=== PATIENT | female | born 1930 | race Caucasian/White ===

== ENCOUNTER → 2017-04-27 | Outpatient (CLI) | payer MEDICARE, BC ==
[~2017-04-27] MED LIST: ACETAMINOPHEN650 M3 PO; ALPRAZOLAM PO; AMANTADINE100 M1 PO; AMLODIPINE BESYL5 MG PO; CALCIUM 1,0001 EACH PO; CALCIUM 500 + D1 TAB PO; CALCIUM 600 + D1 TA1 PO; CELEBREX PO; CENTRAL VITE PO; CERTAGEN PO; CITRACAL200 MG; CITRACAL200 MG PO; COLESTID PO; DONEPEZIL HCL10 MG PO; FISH OIL 1,0001 CA2 PO; FISH OIL 1,0001 CAP PO; FLAGYL PO; FLEXERIL PO; FLEXERIL10 MG PO; HYDRALAZINE HCL25 MG PO; HYDROCODON-ACE1 EAC1 PO; LEVAQUIN PO; LEVAQUIN750 MG PO; LIPITOR PO; LIPITOR20 MG PO; LISINOPRIL PO; LORTAB 7.5-5001 TAB PO; LORTAB 7.51 TAB PO; LYRICA75 MG PO; MULTIVITAMIN W-1 TAB PO; NAMENDA10 MG PO; OLANZAPINE5 MG PO; PANTOPRAZOLE SO40 M1 PO; PREVACID PO; PREVACID15 MG PO; PRILOSEC PO; PROTONIX PO; TRIMPEX100 MG PO; VIT B-12; VIT B-12 PO; VITAMIN B12-FO1 EACH PO; VITAMIN D 22000 UNIT PO; VITAMIN D-32000 UNIT PO; VITAMIN D1000 UNI2 PO; XALATAN OU; XANAX0.5 M1 PO; XANAX0.5 MG PO; ZESTRIL40 MG PO; ZYRTEC PO; ZYRTEC10 M2 PO
[2017-04-27 17:52] LABS: HEMATOCRIT 31.9 % (35.0-45.0); HEMOGLOBIN 10.8 gm/dL (12.0-16.0); MEAN CELL VOLUME 87.9 FL (83-96); MEAN CORPUSCULAR HEMOGLOBIN 29.9 PG (28-34); RED BLOOD COUNT 3.63 X10e (3.90-5.30); RED CELL DISTRIBUTION WIDTH 13.4 % (11.0-15.5); WHITE BLOOD COUNT 6.3 X10e3 (4.0-10.5)
[2017-04-27 18:14] LABS: BILIRUBIN,TOTAL 0.6 mg/dL (0.2-2.0); BUN/CREATININE RATIO 15.78; CALCIUM SERUM 9.2 mg/dL (8.4-10.2); CREATININE SERUM 1.9 mg/dL (0.6-1.4); GLOM FILT RATE Estimated 23.8 mL/min (>60); POTASSIUM 4.2 mmol/L (3.5-5.1)
== END | disposition home or self-care (01) ==
LOC: CLAB 17:37
PROVIDERS: Internal Medicine
DX: R19.7 Diarrhea, unspecified (principal)
CPT/HCPCS: 36415; 80053; 85027